=== PATIENT | male | born 1975 | race African-American/Black ===

== ENCOUNTER 2019-03-30 11:16 | Emergency (ER) | payer OTHER ==
[~2019-03-30] VITALS: Ht 175.3 cm; Wt 104.3 kg
[~2019-03-30 11:16] MED LIST: ACETAMINOPHEN500 M1 PO; CIPROFLOXACIN500 M1 PO; CITRATE OF MAG296 ML PO; DITROPAN XL5 MG PO; HYDROCODON-ACE1 EACH PO; LIPITOR10 MG PO; MAXIPIME 1 GM/D51 G1 IV; NOHOMEMEDICATIONS; VESICARE 5 MG TA5 M1 PO; ZOFRAN ODT4 MG PO; ZOFRAN4 MG PO
[2019-03-30] MEDS ORDERED: IBUPROFEN 800800 M1 PO (13:15)
[2019-03-30] MEDS ORDERED: NORFLEX100 MG PO (13:15)
[2019-03-30 13:16] VITALS: BP 154/90
== END 2019-03-30 13:21 | disposition home or self-care (01) ==
LOC: ER 11:16
DX: S39.012A Strain of muscle, fascia and tendon of lower back, initial encounter (principal); G44.209 Tension-type headache, unspecified, not intractable; E78.00 Pure hypercholesterolemia, unspecified; Z87.442 Personal history of urinary calculi; Z88.5 Allergy status to narcotic agent; Z88.8 Allergy status to other drugs, medicaments and biological substances; V89.2XXA Person injured in unspecified motor-vehicle accident, traffic, initial encounter; Y92.89 Other specified places as the place of occurrence of the external cause; Y93.89 Activity, other specified; Y99.8 Other external cause status